=== PATIENT | female | born 1980 | race Asian ===

== ENCOUNTER 2017-08-31 10:54 | Inpatient (IN) | payer OTHER ==
[~2017-08-31] VITALS: Ht 160 cm; Wt 55.8 kg
--- NOTE | 2017-08-31 11:39 | NUR ---
DR ENG AT BEDSIDE FOR MSE. ATTEMPTED TO DIP URINE FOR ANALYSIS, MACHINE UNABLE TO READ, D/T AMOUNT OF BLOOD IN URINE. DR ENG AWARE.
--- NOTE | 2017-08-31 11:56 | NUR ---
PT TO US VIA WC.
--- NOTE | 2017-08-31 12:20 | NUR ---
BACK FROM US.
--- NOTE | 2017-08-31 13:45 | NUR ---
AWAKE, ALERT, LAYING IN BED, NO SIGNS OF DISTRESS, DENIES DIZZINESS, -N/V.
[2017-08-31 14:10] LABS: PLATELET COUNT 258 x10^3mcL (130-400)
[2017-08-31 14:11] LABS: RED CELL DISTRIBUTION WIDTH 18.2 % (11.5-14.5)
--- NOTE | 2017-08-31 15:10 | NUR ---
AWAKE, ALERT, NO SIGNS OF DISTRESS NOTED.
--- NOTE | 2017-08-31 15:20 | NUR ---
MEDICATION ADMINISTERED ORDERED.
[2017-08-31 15:38] LABS: BAND NEUTROPHIL 1 % (0-10); BASOPHIL 0 % (0-2); MONOCYTE 4 % (0-7); SEGMENTED NEUTROPHILS 73 % (37-75)
[2017-08-31 15:39] LABS: rbc morphology (normal/abnorm) ABNORMAL (NORMAL)
[2017-08-31 15:40] LABS: PLATELET MORPHOLOGY PLATELETS NORMAL
--- NOTE | 2017-08-31 16:00 | NUR ---
RECEIVED PT FROM ER TO 225B. ABLE TO AMBULATE FROM DOORWAY TO 225B. MADE COMFORTABLE. ORIENT TO ROOM. VITAL SIGNS TAKEN. DENIES PAIN. BREATH SOUNDS CLEAR. PULSE OX 100% RA. ABD SOFT, BOWEL TONES PRESENT. PERIPAD IN PLACE WITH MODERATE AMOUNT REDDISH VAGINAL DRAINAGE. NO CLOTS NOTED. LUIS PADS AND PANTIE PROVIDED FOR PERICARE. PT DENIES CRAMPS OR PAIN AT THIS TIME. IV SALINE LOCK RAC. REMAINS NPO. CALL LIGHT IN REACH.
[2017-08-31 16:59] VITALS: BP 138/78
--- NOTE | 2017-08-31 17:00 | NUR ---
IVF NORMAL SALINE STARTED AT 100CC/HR.
[2017-08-31 17:20] LABS: CALCIUM 9.1 mg/dL (8.5-10.1); CARBON DIOXIDE 29.1 mmol/L (21-32); CHLORIDE SERUM 106 mmol/L (98-107); CREATININE SERUM 0.6 mg/dL (0.6-1.0); GFR1 > 60 mL/min; GLUCOSE SERUM 89 mg/dL (74-106); SODIUM SERUM 142 mmol/L (136-145)
[2017-08-31 17:34] LABS: T3 TOTAL 0.77 ng/mL
[2017-08-31 17:46] LABS: PHOSPHOROUS 4.5 mg/dL (2.5-4.9)
[2017-08-31 17:50] LABS: CHOLESTEROL/HDL RATIO 2.4
[2017-08-31 17:54] LABS: FREE T4 0.87 ng/dL (0.76-1.46); T4(THYROXINE) 5.5 ug/dL (4.7-13.3)
--- NOTE | 2017-08-31 18:00 | NUR ---
DR SCRUGGS IN TO VERIFY CODE STATUS. PT PREFERS TO BE A DNR. PURPLE [place] IN PLACE. REQUESTS FLU VACCINE. GIVEN ORDERED. REGULAR DINNER ORDERED, EATING AT THIS TIME. CALL LIGHT IN REACH.
[2017-08-31 18:04] VITALS: BP 138/78
--- NOTE | 2017-08-31 19:30 | NUR ---
PT RESTING IN BED, AWAKE AND ALERT. NO C/O PAIN AT THIS TIME. PT STATED BLEEDING HAS LESSENED SINCE ADMISSION BUT STILL SATURATING SEVERAL SANITARY PADS DURING THE DAY. INCREASED FLOW OF BLEEDING WHEN AMBULATING D/T GRAVITY. WILL MONITOR NUMBER OF PADS THROUGHOUT THE NIGHT, PT NOTIFIED TO KEEP TRACK OF HOW MANY USED. PT STATES GETS SLIGHTLY DIZZY UPON GETTING UP, EDUCATED PT TO USE CALL LIGHT IF ASSISTANCE IS NEEDED, RISE SLOWLY AND DANGLE FEET TO INCREASE CIRCULATION. TELE #3, NS HR 85. IV INFUSING NS 100ML/HR TO RAC, SITE REMAINS PATENT, NO REDNESS OR SWELLING. RESP EVEN AND UNLABORED, NO CP, NO SOB. CALL LIGHT WITHIN REACH, BED IN LOWEST POSITION, WILL CONTINUE TO MONITOR.
[2017-08-31 21:42] VITALS: BP 110/61
--- NOTE | 2017-08-31 22:30 | NUR ---
PT SLEEPING IN BED, EASY TO AROUSE, NO C/O PAIN AT THIS TIME, TELE MONITOR REMOVED PER DOCTORS ORDER, NOW MED SURG PATIENT. RESP EVEN AND UNLABORED, DENIES DIZZINESS AT THIS TIME, CALL LIGHT WITHIN REACH, BED IN LOWEST POSITION, WILL CONTINUE TO MONITOR.
--- NOTE | 2017-08-31 22:40 | NUR ---
TELE MONITOR D/CD ORDERED.
--- NOTE | 2017-09-01 01:30 | NUR ---
PT RESTING IN BED, RESP EVEN AND UNLABORED. CALL LIGHT WITHIN REACH, BED IN LOWEST POSITION, WILL CONTINUE TO MONITOR.
--- NOTE | 2017-09-01 04:30 | NUR ---
PT RESTING WELL IN BED, FEW INTERRUPTIONS IN SLEEP THROUGHOUT NIGHT. RESP EVEN AND UNLABORED. IV INFUSING TO RAC 100ML/HR, FREE OF REDNESS AND SWELLING. BED IN LOWEST POSITION, CALL LIGHT WITHIN REACH, WILL CONTINUE TO MONITOR.
[2017-09-01 05:59] VITALS: BP 110/63
[2017-09-01 06:18] LABS: CALCIUM 7.8 mg/dL (8.5-10.1); CARBON DIOXIDE 24.1 mmol/L (21-32); CHLORIDE SERUM 109 mmol/L (98-107); CREATININE SERUM 0.5 mg/dL (0.6-1.0); GFR1 > 60 mL/min; GLUCOSE SERUM 90 mg/dL (74-106); POTASSIUM SERUM 4.1 mmol/L (3.5-5.1); SODIUM SERUM 139 mmol/L (136-145)
--- NOTE | 2017-09-01 06:57 | NUR ---
PT RESTING IN BED, RESP EVEN AND UNLABORD. IV INFUSING WELL, NO REDNESS OR SWELLING PRESENT. CALL LIGTH WITHIN REACH, BED IN LOWEST POSITION, WILL CONTINUE TO MONITOR.
--- NOTE | 2017-09-01 07:15 | NUR ---
PT SEEN REST ON BED, NO COMPLAIN OF PAIN AT THIS TIME. PT STATED BLEEDING LESS SINCE LAST NIGHT. PT BREATHING ON RA, EVEN, UNLABORED. IV SITE PATENT, INTACT. IVF INFUSING WELL.
[2017-09-01 07:18] LABS: BASOPHIL % 0.6 % (0-2); PLATELET COUNT 229 x10^3mcL (130-400)
[2017-09-01 07:19] LABS: RED CELL DISTRIBUTION WIDTH 18.5 % (11.5-14.5)
[2017-09-01 07:40] VITALS: BP 118/70
[2017-09-01 08:31] LABS: target cell (codocyte) 1+
[2017-09-01 08:32] LABS: ovalocyte/elliptocyte 1+; rbc morphology (normal/abnorm) ABNORMAL (NORMAL)
[2017-09-01 12:10] VITALS: BP 126/76
--- NOTE | 2017-09-01 12:34 | NUR ---
DR. BOTELLO TALKED TO PT AND DECIDED TO DO SURGERY. PT AGREED. REPORT GIVEN TO OR. PT IS TAKEN TO OR.
--- NOTE | 2017-09-01 14:41 | NUR ---
RECEIVED PT BACK FROM OR, VS CHECKED BP 129/72, HR 82 BPM, TEMP 97.8, O2 SAT 100% ON RA. PT FEELING A LITTLE NAUSEA. WILL CONTINUE TO MONITOR PT'S BLEEDING.
[2017-09-01 17:04] VITALS: BP 129/72
--- NOTE | 2017-09-01 18:17 | NUR ---
PT REQUEST TO GO HOME. DR. COLLINS TALKED TO PT. PT DECIDED TO AMA.
== END 2017-09-01 19:00 | disposition left against medical advice (07) | DRG 745 ==
LOC: ED 10:54 → MU 14:43 → DU 14:43 → MU 22:31
PROVIDERS: Emergency Medicine; Obstetrics & Gynecology; ADMIT Family Medicine Sports Medicine
PROC: 0UDB7ZZ Extraction of Endometrium, Via Natural or Artificial Opening (ICD-10-PCS; principal; 2017-09-01 12:30)
DX: N93.8 Other specified abnormal uterine and vaginal bleeding (principal); D50.9 Iron deficiency anemia, unspecified; E83.51 Hypocalcemia; N92.0 Excessive and frequent menstruation with regular cycle
CPT/HCPCS: 83880; 84439; 90658; C1758; J2175; J2250; J2916; J3010; J7030; Q0092